=== PATIENT | female | born 1945 | race Caucasian/White ===

== ENCOUNTER → 2018-02-28 14:54 | Outpatient (CLI) | payer MEDICARE, OTHER, SELFPAY ==
--- NOTE | 2018-02-28 15:03 | XR_ITS ---
XR hip RT 2-3V w/pelvis HISTORY: ITS.REASON: RT HIP PAIN ORDERING PHYSICIAN: Wesley Arias MD PATIENT AGE: 72 years FINDINGS: There are mild osteoarthritic changes of the right hip. No fracture or dislocation. No lytic or blastic change. IMPRESSION: Mild osteoarthritis of the right hip
--- NOTE | 2018-02-28 15:05 | XR_ITS ---
XR DEXA axial skeleton HISTORY: ITS.REASON: POST MENOPAUSAL ORDERING PHYSICIAN: Wesley Arias MD PATIENT AGE: 72 years COMPARISON: FINDINGS: The BMD measured at the Right femoral neck is 0.805 g/cm squared with a T score of -1.7. This is considered Osteopenic according to the World Health Organization criteria. Fracture risk is Moderate. Treatment is advised. IMPRESSION: Osteopenia with moderate fracture risk. Recommend follow-up exam February 2020. Treatment recommended
--- NOTE | 2018-02-28 15:05 | MM_ITS ---
MM Dig screening mamm BI w/CAD CAD Screening INDICATION: Screening for breast cancer ORDERING PHYSICIAN: Wesley Arias MD PATIENT AGE: 72 years COMPARISON: 06/17/2016, 07/07/2016, 08/07/2009 TECHNIQUE: Standard CC and MLO images were obtained. R2 CAD reviewed. FINDINGS: Average fibroglandular tissue. Bilateral skin lesions noted with skin markers. No malignant appearing mass or malignant appearing microcalcification. No malignant appearing mass or malignant microcalcification. Benign-appearing calcifications IMPRESSION: No change with no evidence of malignancy BI-RADS Category: 2 Benign Finding(s) RECOMMENDED FOLLOW-UP: 1YR - 1 YEAR FOLLOW-UP (A letter has been sent to the patient regarding results of the study.)
== END ==
PROVIDERS: Family Provider Family Medicine; PCP Nurse Practitioner; Visit Provider Family Medicine
DX: Z12.31 Encounter for screening mammogram for malignant neoplasm of breast (principal); Z78.0 Asymptomatic menopausal state; Z00.00 Encounter for general adult medical examination without abnormal findings
CPT/HCPCS: 73502; 77067; 77080

== ENCOUNTER 2018-09-08 09:50 | Observation (INO) ==
--- NOTE | 2018-09-08 09:56 | Emergency Department Note ---
ED Disposition Clinical Impression: Multiple falls, Dizziness Disposition: Still a Patient Condition on Discharge: Good - Critical Care Critical Care Time: No Attestation: On 09/08/18, the high probability of a clinically significant, sudden or life threatening deterioration of the following system(s) required my full and direct attention, intervention and personal management. The time I documented below is in addition to time spent performing reported procedures but includes the following listed in this critical care notation. Medical Decision Making - Henri Inquiry Pt receiving controlled substance: No Vital Signs: 09/08/18 09:57 09/08/18 10:49 09/08/18 11:56 Temperature 98.5 F Temperature Source Oral Pulse Rate [Left Radial] 98 H 96 H 88 Respiratory Rate 18 17 Blood Pressure [Right Arm] 117/35 L 128/67 126/60 Blood Pressure Mean [Right Arm] 62 87 82 Blood Pressure Source [Right Arm] Automatic Cuff Automatic Cuff Automatic Cuff Blood Pressure Position [Right Arm] Sitting Supine Supine 02 Sat by Pulse Oximetry 98 94 L 94 L Oxygen Delivery Method Room Air Room Air Room Air - Lab Data Lab Results 09/08/18 11:39: WBC 14.1 H, RBC 4.11 L, Hgb 13.3, Hct 42.8, MCV 104.1 H, MCH 32.4 H, MCHC 31.2 L, RDW 16.0, Plt Count 224, MPV 9.5, Neut % (Auto) 73.6, Lymph % (Auto) 17.0, [place] % (Auto) 8.2, Eos % (Auto) 0.8, Baso % (Auto) 0.5, Neut # (Auto) 10.3 H, Lymph # (Auto) 2.4, [place] # (Auto) 1.2 H, Eos # (Auto) 0.1, Baso # (Auto) 0.1 09/08/18 11:39: Sodium 140, Potassium 3.7, Chloride 105, Carbon Dioxide 28, Anion Gap 10.7, BUN 12, Creatinine 0.96, Estimated Creat Clear 50, Estimated GFR 57 L, Est GFR ( Amer) 69, Glucose 106, Calcium 7.6 L, Total Bilirubin 1.1 H, AST 14 L, ALT 11 L, Alkaline Phosphatase 103, Troponin I < 0.02, Total Protein 6.2 L, Albumin 2.8 L, Globulin 3.4 H, Albumin/Globulin Ratio 0.8 L 09/08/18 11:50: Urine Color Yellow, Urine Appearance Clear, Urine pH 6.0, Ur Specific [place] >= 1.030, Urine Protein Trace, Urine Glucose (UA) Negative, Urine Ketones Trace, Urine Blood Negative, Urine Nitrate Negative, Urine Phil irubin Negative, Urine Urobilinogen 4.0, Ur Leukocyte Esterase Negative, Urine RBC Occasional, Urine WBC Occasional, Ur Squamous Epith Cells None, Urine Bacteria Trace Result diagrams: 09/08/18 11:39 09/08/18 11:39 Orders (Tests/Meds): ORDERS Category Date Time Status Urinalysis and Microscopic Stat Lab 09/08/18 11:50 Ordered - Radiology Data #1 Image(s): Chest, Hip Image Reviewed: Yes I have reviewed radiologist's interpretation Preliminary Findings: Normal/NAD - CT Data CT Scan: Head Time Received: 11:[address] Reviewed: Yes: I have viewed the radiologist's interpretation Findings Narrative: Head: IMPRESSION: Findings of moderate cortical atrophy and stable old ischemic infarcts as described above, no definite acute intracranial pathology noted Dictated By: Daryl Villagomez Signed By: <Electronically signed by Daryl Villagomez in OV> 09/08/18 1058 Hip: There is a somewhat elongated radiolucent lesion of the left iliac bone just lateral to the SI joint measuring 1.2 x 4.8 cm in size with fairly well-defined borders and 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 A lytic metastatic lesion cannot be entirely excluded and if there is persistent pain of follow-up nonemergent bone scan may be helpful for additional evaluation. The femoral head and neck appear intact. The lesser and greater trochanter appear grossly normal. There is minor spurring of the superior rim of the acetabulum. IMPRESSION: 1. No acute left hip fracture seen 2. Radiolucent lesion of the left iliac bone, see discussion above Dictated By: Daryl Villagomez Signed By: <Electronically signed by Daryl Villagomez in OV> 09/08/18 1122 - ECG Data Tracing #1 EKG interpreted by Beck Barton MD: Rhythm: Atrial fibrillation Rate: 86 [place]: normal Ectopy: none Conduction: normal ST Segment Changes: none T Wave Changes: Nonspecific Q Waves: none No evidence of acute ischemia or injury Low voltage QRS - Physician Consults Physician Consulted: Breana shukla Hugo Time: 13:36 Reason -: Admission Comment/Response: Agrees to admit the patient to the hospital. We discussed the patient's clinical information, including history, exam, laboratory and radiology results and ED course. Per hospital procedure, I will write [facility] bridge inpatient orders on the patient. Specific orders requested by the admit [facility] physician: PT/OT consult Medical Decision Narrative: Discussed results. Patient states that she has a chronically elevated white blood cell count. General Adult HPI - General Chief complaint: Fall Stated complaint: fall Time Seen by Provider: 09/08/18 09:56 - History of Present Illness HPI narrative: Since Tuesday has been weak and dizzy and has fallen 5 times. Has pain in her left hip from the falls. She has been using a walker, but still falls. Daughter walks behind her has been able to abort some falls. She has some redness around her eyes and mouth, probable allergic reaction is started a few days ago and has been on Benadryl, but has not had any since yesterday. Denies cough, cold symptoms. Denies fever. Denies vomiting or diarrhea. Denies chest pain or shortness of breath. Daughter says that she has a previous stroke, residual of dysarthria and left-sided weakness. Daughter saw a little bit of drooping of her face for a few minutes over the past couple of days, but not persistent. No new deficits noted for her generalized weakness and dizziness. No other new medications. - Related Data Home Medications Medication Instructions Recorded Confirmed Atenolol [Atenolol 100mg Tab] 100 mg PO DAILY 09/08/18 09/08/18 Levothyroxine Sodium 25 mcg PO DAILY 09/08/18 09/08/18 [Levothyroxine 25mcg (0.025mg) Tab] PARoxetine HCl [Paxil 10mg Tablet] 10 mg PO DAILY 09/08/18 09/08/18 Rivaroxaban [Xarelto 20mg Tablet] 20 mg PO DAILY 09/08/18 09/08/18 dilTIAZem HCl [Cardizem 30mg 30 mg PO QID 09/08/18 09/08/18 tab] levETIRAcetam [Levetiracetam] 250 mg PO BID 09/08/18 09/08/18 Allergies Allergy/AdvReac Type Severity Reaction Status Date / Time ofloxacin [OFLOXACIN] Allergy Unknown Verified 09/08/18 10:08 [facility] History I have reviewed the patient's past medical history: Yes ROS Obtained: Yes All systems reviewed & no additional complaints - Constitutional Constitutional: Denies fever(s), Reports weakness - Cardiovascular Cardiovascular: Denies chest pain - Respiratory Respiratory: No dyspnea - Gastrointestinal Gastrointestingal: Denies: abdominal pain, diarrhea, vomiting - Musculoskeletal Musculoskeletal: Reports joint pain (Left hip) - Neurologic Neurologic: Reports as per HPI, Denies headache(s) Physical Exam - General General appearance: alert, in no apparent distress Comment: Dysarthria - Head Head exam: atraumatic, normocephalic, normal inspection - Eye Eye exam: Present: PERRL, EOMI, other (Erythema of the eyelids and periorbital tissues, consistent with allergic response). Absent: nystagmus - ENT ENT exam: Present: mucous membranes moist, TM's normal bilaterally - Neck Neck exam: Present: normal inspection, full ROM, trachea midline. Absent: meningismus, lymphadenopathy - Chest Chest inspection: Present: normal inspection, symmetric chest wall rise. Absent: tenderness - Respiratory Respiratory exam: Present: normal lung sounds bilaterally. Absent: respiratory distress - Cardiovascular Cardiovascular exam: Present: regular rate, irregular rhythm. Absent: JVD - Abdominal Exam Abdominal exam: Present: soft, normal bowel sounds. Absent: distention, tenderness, guarding - Extremities Exam Extremities exam: Present: normal capillary refill - Expanded Lower Extremity Exam Left Comment: Tender left hip without deformity. Pain with flexion and internal/external rotation. Neurovascular intact with good pulses, capillary refill, sensation. - Neurological Exam Neurological exam: Present: alert, oriented X3, other (Dysarthria, mild left hemiparesis) - Psychiatric Psychiatric exam: Present: normal affect, normal mood - Skin Skin exam: Present: warm, dry, intact, normal color
[2018-09-08 11:48] LABS: Basophils # 0.1 K/mm3 (0-0.2); Basophils % 0.5 % (0.1-2.0); Eosinophils # 0.1 K/mm3 (0.0-0.4); Eosinophils % 0.8 % (0.1-12.0); Hematocrit 42.8 % (37.0-47.0); Hemoglobin 13.3 g/dL (12.2-16.2); Lymphocytes # 2.4 K/mm3 (0.7-4.5); Mean Corpuscular HGB Conc 31.2 g/dL (31.8-35.4); Mean Corpuscular Hemoglobin 32.4 pg (27.0-31.2); Mean Corpuscular Volume 104.1 fl (81-99); Mean Platelet Volume 9.5 fl (7.4-10.4); Monocytes # 1.2 K/mm3 (0.1-1.0); Monocytes % 8.2 % (1.7-9.3); Neutrophils # 10.3 K/mm3 (1.8-7.8); Neutrophils % 73.6 % (37.0-80.0); Platelet Count 224 K/mm3 (142-424); Red Blood Count 4.11 M/mm3 (4.20-5.40); White Blood Count 14.1 K/mm3 (4.8-10.8)
[2018-09-08 12:02] LABS: Alanine Aminotransferase 11 U/L (12-78); Albumin Level 2.8 gm/dL (3.4-5.0); Albumin/Globulin Ratio 0.8 (1.1-1.8); Alkaline Phosphatase 103 U/L (46-116); Anion Gap 10.7 mEq/L (5-15); Aspartate Amino Transferase 14 U/L (15-37); Bilirubin,Total 1.1 mg/dL (0.2-1.0); Blood Urea Nitrogen 12 mg/dL (7-18); Calcium 7.6 mg/dL (8.5-10.1); Carbon Dioxide 28 mmol/L (21.0-32.0); Chloride 105 mmol/L (98-107); Globulin 3.4 gm/dl (1.3-3.2); Glucose 106 mg/dL (74-106); Potassium 3.7 mmoL/L (3.5-5.1); Sodium 140 mmol/L (136-145); Total Protein,Serum 6.2 gm/dL (6.4-8.2)
[2018-09-08 12:57] LABS: Microscopic, Urine URINE MICROSCOPIC (MICROSCOPIC)
[2018-09-08 13:05] LABS: Appearance,Urine CLEAR (Clear); Blood, Urine Negative (Negative); Color,Urine YELLOW (Yellow); Glucose,Urine (UA) Negative (Negative); Ketones,Urine TRACE (Negative); Leukocyte Esterase,Urine Negative (Negative); Protein,Urine TRACE (Negative); Specific Gravity, Urine >= 1.030 (1.005-1.030)
[2018-09-08 13:10] LABS: Bilirubin,Urine Negative (Negative)
[2018-09-08 13:16] LABS: Bacteria,Urine Trace /lpf; RBC,Urine Occasional #/hpf (0-3); WBC,Urine Occasional #/hpf (0-3)
[2018-09-08 14:37] LABS: Free Thyroxine Index 2.8 ug/dL (5.93-13.13); T4 (Thyroxine) 7.8 ug/dl (4.7-13.3); Thyroid Stimulating Hormone 1.63 uIU/ml (0.358-3.740)
--- NOTE | 2018-09-09 10:32 | History & Physical Report ---
*Admission Date: 09/08/18 *Chief complaint: Multiple falls *History of present illness: Ms. Waggoner is a 73-year-old white female with a history of previous CVA, chronic atrial fibrillation, hypothyroidism and depression. She was brought to the emergency room yesterday after having had several falls at home. Her daughter states that the first fall occurred on 09/06/2018 and she landed on her right hip. After that she continued to complain of pain in the hip was favoring her leg and her daughter thinks that is the reason she continued to have falls. She had been started on antibiotic earlier in the week for apparent sinus infection but her daughter dates she had no complaints of dizziness. There were no syncopal spells. No complaints of cardiac palpitations or chest pain. She complained of some swelling and itching of her eyes with clear watery drainage. No headaches or visual changes. No complaints of sinus drainage. She was evaluated in the emergency room with multiple x-rays and head CT which showed no acute fractures. There was questionably lesion in the iliac bone that was most consistent with a bone cyst. Because of her history of multiple falls she has been admitted for further evaluation. [facility] History Medical History: Reports:: Atrial Fibrillation (Chronic), Hypertension Denies:: Diabetes Mellitus Type 1, Diabetes Mellitus Type 2 Other Medical History: Reports: Arthritis, Hypothyroidism Other Surgeries: Yes: Cholecystectomy, Hysterectomy-Total Fractures: Yes (ORIF left ankle fracture) - *Social History Smoking Status: Never smoker Alcohol Intake: never Occupational Status: disabled Household Members: spouse, children - Psychiatric History Expresses thoughts of harming self/others: None Suicide Plan Description: No Plan *Family Hx:: Coronary Artery Disease, Diabetes, Hypertension Comment: Alexandro's dementia Review of Systems - Constitutional Denies anorexia, Denies fever(s), Denies weakness - Eyes Reports discharge (clear, watery) Comments: itchy eyes - ENT Reports change in voice (hoarse since her stroke), Denies abnormal hearing, Denies difficulty swallowing, Denies sinus pain, Denies sinus pressure, Denies sore throat - *Cardiovascular Denies chest pain, Denies shortness of breath, Denies rapid, pounding, or irregular heartbeat - *Respiratory Denies chest congestion, Denies cough - *Gastrointestinal Denies abdominal pain, Denies change in bowel habits, Denies nausea, Denies vomiting - *Genitourinary Denies abnormal vaginal bleeding, Denies painful urination - *Musculoskeletal Reports abnormal walking, Reports muscle weakness (related to old stroke) - Integumentary/Breasts Denies change in skin color - *Neurologic Reports abnormal walking, Reports frequent falls, Reports weakness, Denies abnormal hearing, Denies headache(s), Denies memory loss - Psychiatric Reports depression, Denies anxiety - Endocrine Denies heat intolerance - Hematologic/Lymphatic Denies easy bruising - Allergic/Immunologic Reports itchy eyes Meds Home Medications Medication Instructions Recorded Confirmed Type Atenolol [Atenolol 100mg Tab] 50 mg PO DAILY 09/08/18 09/09/18 History Levothyroxine Sodium 25 mcg PO DAILY 09/08/18 09/08/18 History [Levothyroxine 25mcg (0.025mg) Tab] PARoxetine HCl [Paxil 10mg Tablet] 10 mg PO DAILY 09/08/18 09/08/18 History Rivaroxaban [Xarelto 20mg Tablet] 20 mg PO DAILY 09/08/18 09/08/18 History dilTIAZem HCl [Cardizem 30mg 30 mg PO Q8H 09/08/18 09/09/18 History tab] levETIRAcetam [Levetiracetam] 250 mg PO BID 09/08/18 09/08/18 History Atenolol [Atenolol 100mg Tab] 50 mg PO DAILY 09/09/18 09/09/18 History Allergies Allergy/AdvReac Type Severity Reaction Status Date / Time ofloxacin [OFLOXACIN] Allergy Unknown Verified 09/08/18 10:08 Exam Vital signs and Labs for Last 24 Hours: Temp Pulse Resp BP Pulse Ox 98.0 F 91 H 16 130/79 97 09/09/18 08:00 09/09/18 08:00 09/09/18 08:00 09/09/18 08:00 09/09/18 08:00 Laboratory Results - last 24 hr 09/08/18 11:39: WBC 14.1 H, RBC 4.11 L, Hgb 13.3, Hct 42.8, MCV 104.1 H, MCH 32.4 H, MCHC 31.2 L, RDW 16.0, Plt Count 224, MPV 9.5, Neut % (Auto) 73.6, Lymph % (Auto) 17.0, [place] % (Auto) 8.2, Eos % (Auto) 0.8, Baso % (Auto) 0.5, Neut # (Auto) 10.3 H, Lymph # (Auto) 2.4, [place] # (Auto) 1.2 H, Eos # (Auto) 0.1, Baso # (Auto) 0.1 09/08/18 11:39: Sodium 140, Potassium 3.7, Chloride 105, Carbon Dioxide 28, Anion Gap 10.7, BUN 12, Creatinine 0.96, Estimated Creat Clear 50, Estimated GFR 57 L, Est GFR ( Amer) 69, Glucose 106, Calcium 7.6 L, Total Bilirubin 1.1 H, AST 14 L, ALT 11 L, Alkaline Phosphatase 103, Troponin I < 0.02, Total Protein 6.2 L, Albumin 2.8 L, Globulin 3.4 H, Albumin/Globulin Ratio 0.8 L 09/08/18 11:39: TSH 1.63, Free T4 Index 2.8 L, Thyroxine (T4) 7.8, T3 Uptake 36 09/08/18 11:50: Urine Color Yellow, Urine Appearance Clear, Urine pH 6.0, Ur Specific [place] >= 1.030, Urine Protein Trace, Urine Glucose (UA) Negative, Urine Ketones Trace, Urine Blood Negative, Urine Nitrate Negative, Urine Bilirubin Negative, Urine Urobilinogen 4.0, Ur Leukocyte Esterase Negative, Urine RBC Occasional, Urine WBC Occasional, Ur Squamous Epith Cells None, Urine Bacteria Trace I & O for Last 24 hours: Intake & Output 09/06/18 09/07/18 09/08/18 09/09/18 11:59 11:59 11:59 11:59 Intake Total 610 / 610 Balance 610 / 610 Weight 144 lb 139 lb 5 oz Narrative: She is lying comfortably in bed. She is awake alert and oriented to person place and time. She appears in no acute distress. HEENT shows cranium to be atraumatic and normocephalic. The skin on her upper and lower eyelids is red and dry bilaterally. Conjunctivae are mildly injected. No purulent drainage. Nares are patent. TMs unremarkable. No erythema of the throat. Voice is hoarse. Neck is supple with no masses, thyromegaly, or bruits. Heart is irregularly irregular. Lungs are clear to auscultation. Abdomen is soft and nondistended with no unusual masses or tenderness. Extremeties show no edema. There is some tenderness over the right lateral hip. No bruising noted. Range of motion of the hip is normal. Gait is not tested. Assessment and Plan (1) Multiple falls Current visit: Yes Status: Acute Category: Medical Code(s): R29.6 - Repeated falls (2) Right hip pain Current visit: Yes Status: Acute Category: Medical Code(s): M25.551 - Pain in right hip (3) History of CVA (cerebrovascular accident) Current visit: Yes Status: Acute Category: Medical Code(s): Z86.73 - Personal history of transient ischemic attack (TIA), and cerebral infarction without residual deficits (4) Hypothyroidism Current visit: Yes Status: Acute Category: Medical Code(s): E03.9 - Hypothyroidism, unspecified (5) Depression Current visit: Yes Status: Acute Category: Medical Code(s): F32.9 - Major depressive disorder, single episode, unspecified (6) Allergic conjunctivitis Current visit: Yes Status: Acute Category: Medical Code(s): H10.10 - Acute atopic conjunctivitis, unspecified eye (7) Acute sinusitis Current visit: Yes Status: Acute Category: Medical Code(s): J01.90 - Acute sinusitis, unspecified (8) DNR (do not resuscitate) Current visit: Yes Status: Acute Category: Medical Code(s): Z66 - Do not resuscitate - Assessment and plan all Dx Assessment and Plan for all problems:: She has been admitted for further evaluation. We will have physical therapy see her to assess her gait and balance. She will be continued on Benadryl for her allergic conjunctivitis symptoms. She will also be continued on oral antibiotics that were started for sinus infection. I discussed disposition with her daughter. If she qualifies for skilled care, this would be their preference but they are also amenable to home health or outpatient physical therapy.
--- NOTE | 2018-09-09 11:43 | Pharmacy Consult Notes ---
[facility] Pharmacy VTE Monitoring - Patient Demographics Admission date: 09/08/18 Report Date: 09/09/18 Time: 11:42 Allergies/Adverse Reactions: Patient Allergies ofloxacin [OFLOXACIN] Allergy (Unknown, Verified 09/08/18 10:08) Height: 1.7 m Weight: 63.191 kg Patient Problems: Current Active Problems Multiple falls (Acute) Dizziness (Acute) Right hip pain (Acute) History of CVA (cerebrovascular accident) (Acute) Hypothyroidism (Acute) Depression (Acute) Allergic conjunctivitis (Acute) Acute sinusitis (Acute) DNR (do not resuscitate) (Acute) - VTE Risk Labs: VTE Related Lab Results Hgb 13.3 g/dL (12.2-16.2) 09/08/18 11:39 Hct 42.8 % (37.0-47.0) 09/08/18 11:39 Plt Count 224 K/mm3 (142-424) 09/08/18 11:39 BUN 12 mg/dL (7-18) 09/08/18 11:39 Creatinine 0.96 mg/dL (0.55-1.02) 09/08/18 11:39 Estimated Creat Clear 50 mL/min (50-200) 09/08/18 11:39 - Prophylaxis VTE Prophylaxis Ordered?: Yes Types of VTE Prophylaxis: Pharmacological (XARELTO) Pharmacologic Type: Other
[2018-09-10 06:46] LABS: Basophils # 0.1 K/mm3 (0-0.2); Basophils % 0.6 % (0.1-2.0); Eosinophils # 0.7 K/mm3 (0.0-0.4); Eosinophils % 5.8 % (0.1-12.0); Hematocrit 41.9 % (37.0-47.0); Hemoglobin 13.4 g/dL (12.2-16.2); Lymphocytes # 3.9 K/mm3 (0.7-4.5); Lymphocytes % 31.1 % (10-50); Mean Corpuscular HGB Conc 31.9 g/dL (31.8-35.4); Mean Corpuscular Hemoglobin 32.6 pg (27.0-31.2); Mean Corpuscular Volume 102.2 fl (81-99); Mean Platelet Volume 11.1 fl (7.4-10.4); Monocytes # 1.2 K/mm3 (0.1-1.0); Monocytes % 9.2 % (1.7-9.3); Neutrophils # 6.7 K/mm3 (1.8-7.8); Neutrophils % 53.3 % (37.0-80.0); Platelet Count 253 K/mm3 (142-424); Red Cell Distribution Width 15.8 % (11.5-17.5); White Blood Count 12.5 K/mm3 (4.8-10.8)
--- NOTE | 2018-09-10 08:38 | Progress Note ---
Internal Medicine - PN: Subj Interval history: She c/o pain in left hip. Eyes still itchy but better. C/o lips dry and cracking. Exam Vital signs and Labs for Last 24 Hours: Temp Pulse Resp BP Pulse Ox 96.9 F L 79 18 113/59 L 98 09/10/18 04:00 09/10/18 04:00 09/10/18 04:00 09/10/18 04:00 09/10/18 04:00 Laboratory Results - last 24 hr 09/10/18 06:10: WBC 12.5 H, RBC 4.10 L, Hgb 13.4, Hct 41.9, MCV 102.2 H, MCH 32.6 H, MCHC 31.9, RDW 15.8, Plt Count 253, MPV 11.1 H, Neut % (Auto) 53.3, Lymph % (Auto) 31.1, [place] % (Auto) 9.2, Eos % (Auto) 5.8, Baso % (Auto) 0.6, Neut # (Auto) 6.7, Lymph # (Auto) 3.9, [place] # (Auto) 1.2 H, Eos # (Auto) 0.7 H, Baso # (Auto) 0.1 I & O for Last 24 hours: Intake & Output 09/07/18 09/08/18 09/09/18 09/10/18 11:59 11:59 11:59 11:59 Intake Total 610 / 610 970 / 970 Balance 610 / 610 970 / 970 Weight 144 lb 139 lb 5 oz - Constitutional Comments: Lying in bed. Mildly uncomfortable - *Routine Respiratory Exam Present: CTA bilaterally - *Routine Cardiovascular Exam Present: irregular rhythm - *Routine Extremities Exam Absent: edema Assessment and Plan (1) Multiple falls Current visit: Yes Status: Acute Category: Medical Code(s): R29.6 - Repeated falls (2) Left hip pain Current visit: Yes Status: Acute Category: Medical Code(s): M25.552 - Pain in left hip (3) History of CVA (cerebrovascular accident) Current visit: Yes Status: Acute Category: Medical Code(s): Z86.73 - Personal history of transient ischemic attack (TIA), and cerebral infarction without residual deficits (4) Hypothyroidism Current visit: Yes Status: Acute Category: Medical Code(s): E03.9 - Hy pothyroidism, unspecified (5) Depression Current visit: Yes Status: Acute Category: Medical Code(s): F32.9 - Major depressive disorder, single episode, unspecified (6) Allergic conjunctivitis Current visit: Yes Status: Acute Category: Medical Code(s): H10.10 - Acute atopic conjunctivitis, unspecified eye (7) Acute sinusitis Current visit: Yes Status: Acute Category: Medical Code(s): J01.90 - Acute sinusitis, unspecified (8) DNR (do not resuscitate) Current visit: Yes Status: Acute Category: Medical Code(s): Z66 - Do not resuscitate - Assessment and plan all Dx Assessment and Plan for all problems:: PT bob noted. They feel she would benefit from SNF referral however finances is likely to be an issue as she will not have a qualifying stay. Care management has been in conversation with family.
[2018-09-11 07:16] LABS: Basophils # 0.1 K/mm3 (0-0.2); Basophils % 0.4 % (0.1-2.0); Eosinophils # 0.3 K/mm3 (0.0-0.4); Eosinophils % 2.5 % (0.1-12.0); Hematocrit 38.3 % (37.0-47.0); Hemoglobin 12.2 g/dL (12.2-16.2); Lymphocytes # 2.7 K/mm3 (0.7-4.5); Lymphocytes % 21.7 % (10-50); Mean Corpuscular HGB Conc 31.8 g/dL (31.8-35.4); Mean Corpuscular Hemoglobin 32.6 pg (27.0-31.2); Mean Corpuscular Volume 102.6 fl (81-99); Mean Platelet Volume 9.3 fl (7.4-10.4); Monocytes # 0.7 K/mm3 (0.1-1.0); Monocytes % 5.3 % (1.7-9.3); Neutrophils # 8.8 K/mm3 (1.8-7.8); Platelet Count 279 K/mm3 (142-424); Red Blood Count 3.73 M/mm3 (4.20-5.40); Red Cell Distribution Width 15.9 % (11.5-17.5); White Blood Count 12.6 K/mm3 (4.8-10.8)
--- NOTE | 2018-09-11 08:47 | Progress Note ---
Internal Medicine - PN: Subj *Date: 09/11/18 *Time: 08:44 Interval history: Patient with no new complaints today, wants to go home. No family present in room this morning. Exam Vital signs and Labs for Last 24 Hours: Temp Pulse Resp BP Pulse Ox 97.7 F 95 H 16 141/79 H 98 09/11/18 07:43 09/11/18 07:43 09/11/18 08:00 09/11/18 07:43 09/11/18 08:00 Laboratory Results - last 24 hr 09/11/18 06:10: WBC 12.6 H, RBC 3.73 L, Hgb 12.2, Hct 38.3, MCV 102.6 H, MCH 32.6 H, MCHC 31.8, RDW 15.9, Plt Count 279, MPV 9.3, Neut % (Auto) 70.0, Lymph % (Auto) 21.7, [place] % (Auto) 5.3, Eos % (Auto) 2.5, Baso % (Auto) 0.4, Neut # (Auto) 8.8 H, Lymph # (Auto) 2.7, [place] # (Auto) 0.7, Eos # (Auto) 0.3, Baso # (Auto) 0.1 I & O for Last 24 hours: Intake & Output 09/08/18 09/09/18 09/10/18 09/11/18 11:59 11:59 11:59 11:59 Intake Total 610 / 610 970 / 970 370 / 370 Balance 610 / 610 970 / 970 370 / 370 Weight 144 lb 139 lb 5 oz - Constitutional no acute distress (hoarse voice but conversant) - *Routine HEENT Exam Eye: Present: EOMI, PERRL. Absent: scleral injection Assessment and Plan (1) Multiple falls Current visit: Yes Status: Acute Category: Medical Code(s): R29.6 - Repeated falls (2) Left hip pain Current visit: Yes Status: Acute Category: Medical Code(s): M25.552 - Pain in left hip (3) History of CVA (cerebrovascular accident) Current visit: Yes Status: Acute Category: Medical Code(s): Z86.73 - Personal history of transient ischemic attack (TIA), and cerebral infarction without residual deficits (4) Hypothyroidism Current visit: Yes Status: Acute Category: Medical Code(s): E03.9 - Hypothyroidism, unspecified (5) Depression Current visit: Yes Status: Acute Category: Medical Code(s): F32.9 - Major depressive disorder, single episode, unspecified (6) Allergic conjunctivitis Current visit: Yes Status: Acute Category: Medical Code(s): H10.10 - Acute atopic conjunctivitis, unspecified eye (7) Acute sinusitis Current visit: Yes Status: Acute Category: Medical Code(s): J01.90 - Acute sinusitis, unspecified (8) DNR (do not resuscitate) Current visit: Yes Status: Acute Category: Medical Code(s): Z66 - Do not resuscitate - Assessment and plan all Dx Assessment and Plan for all problems:: Patient appears ready for discharge but her post hospital care plan has not been worked out yet. Discussed with care management.
[2018-09-11 17:47] LABS: Microscopic, Urine URINE MICROSCOPIC (MICROSCOPIC)
[2018-09-11 17:48] LABS: Appearance,Urine CLEAR (Clear); Bilirubin,Urine Negative (Negative); Blood, Urine Negative (Negative); Color,Urine YELLOW (Yellow); Glucose,Urine (UA) Negative (Negative); Ketones,Urine TRACE (Negative); Leukocyte Esterase,Urine Negative (Negative); PH,Urine 6.5 (5.0-8.5); Protein,Urine Negative (Negative)
[2018-09-11 18:22] LABS: Bacteria,Urine Trace /lpf; WBC,Urine Occasional #/hpf (0-3)
--- NOTE | 2018-09-11 22:40 | Discharge Summary ---
General - General Admission date:: 09/08/18 HPI HPI: Ms. Waggoner is a 73-year-old white female with a history of previous CVA, chronic atrial fibrillation, hypothyroidism and depression. She was brought to the emergency room yesterday after having had several falls at home. Her daughter states that the first fall occurred on 09/06/2018 and she landed on her left hip. After that she continued to complain of pain in the hip was favoring her leg and her daughter thinks that is the reason she continued to have falls. She had been started on an antibiotic earlier in the week for apparent sinus infection but her daughter states she had no complaints of dizziness. There w ere no syncopal spells. No complaints of cardiac palpitations or chest pain. She complained of some swelling and itching of her eyes with clear watery drainage. No headaches or visual changes. No complaints of sinus drainage. She was evaluated in the emergency room with multiple x-rays and head CT which showed no acute fractures. 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 Because of her history of multiple falls she has been admitted for further evaluation. Hospital Course Hospital Course: Physical therapy saw her to assess her gait and balance. She was continued on Benadryl for her allergic conjunctivitis symptoms. She was also continued on oral antibiotics that were started for sinus infection. PT felt she would benefit from SNF referral, however finances were an issue as she did not have a qualifying stay. Care management was in conversation with the family. Dr. Guardado spoke with the patient's daughter. The patient wanted to be discharged. A urine was collected for UA prior to discharge and she was able to be discharged with home health and a f/u with Dr. Arias in 1 week. Objective Vital signs: Temp Pulse Resp BP Pulse Ox 97.5 F L 89 16 122/77 95 09/11/18 15:57 09/11/18 15:57 09/11/18 15:57 09/11/18 15:57 09/11/18 15:57 Narrative: - Constitutional Comments: Lying in bed. Mildly uncomfortable - *Routine Respiratory Exam Present: CTA bilaterally - *Routine Cardiovascular Exam Present: irregular rhythm - *Routine Extremities Exam Absent: edema Results Labs on day of discharge: Labs from last 24 hours 09/11/18 09/11/18 17:39 06:10 WBC 12.6 H RBC 3.73 L Hgb 12.2 Hct 38.3 MCV 102.6 H MCH 32.6 H MCHC 31.8 RDW 15.9 Plt Count 279 MPV 9.3 Neut % (Auto) 70.0 Lymph % (Auto) 21.7 Young % (Auto) 5.3 Eos % (Auto) 2.5 Baso % (Auto) 0.4 Neut # (Auto) 8.8 H Lymph # (Auto) 2.7 Young # (Auto) 0.7 Eos # (Auto) 0.3 Baso # (Auto) 0.1 Urine Color Yellow Urine Appearance Clear Urine pH 6.5 Ur Specific [place] 1.010 Urine Protein Negative Urine Glucose (UA) Negative Urine Ketones Trace Urine Blood Negative Urine Nitrate Negative Urine Bilirubin Negative Urine Urobilinogen 1.0 Ur Leukocyte Esterase Negative Urine WBC Occasional Ur Squamous Epith Cells 5-10 Urine Bacteria Trace DS: Diagnosis - Discharge Diagnosis (1) Multiple falls Status: Acute (2) Left hip pain Status: Acute (3) History of CVA (cerebrovascular accident) Status: Acute (4) Hypothyroidism Status: Acute (5) Depression Status: Acute (6) Allergic conjunctivitis Status: Acute (7) Acute sinusitis Status: Acute (8) DNR (do not resuscitate) Status: Acute Discharge Plan - Patient Discharge Instructions ACTIVITY: Continue current activity DIET: continue same diet Patient Instructions: DI for Acute Pain -- Adult, How to Prevent Falls, Dizziness, Nonvertigo - Follow up Plan Follow up with: Wesley Arias MD [Primary Care Provider] - 1 week Disposition: Home Health Service Home Medications: Home Medications Medication Instructions Recorded Confirmed Type Levothyroxine Sodium 25 mcg PO DAILY 09/08/18 09/08/18 History [Levothyroxine 25mcg (0.025mg) Tab] PARoxetine HCl [Paxil 10mg Tablet] 10 mg PO DAILY 09/08/18 09/08/18 History Rivaroxaban [Xarelto 20mg Tablet] 20 mg PO HS 09/08/18 09/09/18 History dilTIAZem HCl [Cardizem 30mg 30 mg PO Q8H 09/08/18 09/09/18 History tab] levETIRAcetam [Levetiracetam] 250 mg PO BID 09/08/18 09/08/18 History Atenolol [Atenolol 100mg Tab] 50 mg PO DAILY 09/09/18 09/09/18 History Pantoprazole Sodium [Protonix 40mg 40 mg PO DAILY 09/09/18 09/09/18 History tablet] Prescriptions/Medication Reconciliation: Continue Levothyroxine Sodium [Levothyroxine 25mcg (0.025mg) Tab] 25 mcg PO DAILY levETIRAcetam [Levetiracetam] 250 mg PO BID dilTIAZem HCl [Cardizem 30mg tab] 30 mg PO Q8H Atenolol [Atenolol 100mg Tab] 50 mg PO DAILY Pantoprazole Sodium [Protonix 40mg tablet] 40 mg PO DAILY Rivaroxaban [Xarelto 20mg Tablet] 20 mg PO HS PARoxetine HCl [Paxil 10mg Tablet] 10 mg PO DAILY
== END 2018-09-11 17:57 | disposition home health service (06) ==
LOC: ER 09:50 → 2ND 09:50
PROVIDERS: ADMIT Emergency Medicine; ATTEND Family Medicine

== ENCOUNTER → 2018-09-26 12:52 | Outpatient (CLI) | payer MEDICARE, OTHER, SELFPAY ==
[2018-09-26 14:51] LABS: Anion Gap 11.2 mEq/L (5-15); Blood Urea Nitrogen 10 mg/dL (7-18); Calcium 8.1 mg/dL (8.5-10.1); Carbon Dioxide 28 mmol/L (21.0-32.0); Chloride 106 mmol/L (98-107); Creatinine,Serum 0.87 mg/dL (0.55-1.02); Estimated Glomerular Filt Rate 63 ml/min (>60); GFR (African American) 77 ML/MIN (>60); Glucose 105 mg/dL (74-106); Sodium 141 mmol/L (136-145)
[2018-09-26 14:54] LABS: Potassium 4.2 mmoL/L (3.5-5.1)
== END ==
PROVIDERS: Visit Provider Family Medicine
DX: Z86.73 Personal history of transient ischemic attack (TIA), and cerebral infarction without residual deficits (principal)
CPT/HCPCS: 36415; 80048

== ENCOUNTER → 2019-07-11 16:07 | Outpatient (CLI) | payer MEDICARE, OTHER, SELFPAY ==
--- NOTE | 2019-07-11 16:16 | XR_ITS ---
PROCEDURE: XR CHEST 2V CLINICAL HISTORY: SOB Shortness of air COMPARISON: CXR CHEST(2 VIEWS-NOT PORTABLE) from 08/09/2016 CXR2 CHEST-AP VIEW ONLY from 11/12/2016 CXR1 CHEST-PORTABLE from 04/29/2017 CXR2 XR chest AP from 09/08/2018 FINDINGS: There has been interval development of a medium-sized left pleural effusion. There is obscuration of the left lung base. Cannot exclude superimposed pneumonia in the left lower lobe. There is mild cardiomegaly. The right lung is clear. No acute bony findings. IMPRESSION: Moderate-sized left pleural effusion Dictated by: Drake Alfaro MD 07/11/2019 16:53 Electronically signed by Draek Alfaro MD in [place] 07/11/2019 16:53
[2019-07-11 18:16] LABS: Alanine Aminotransferase 10 U/L (12-78); Albumin Level 2.8 gm/dL (3.4-5.0); Albumin/Globulin Ratio 0.9 (1.1-1.8); Alkaline Phosphatase 118 U/L (46-116); Anion Gap 9.8 mEq/L (5-15); Aspartate Amino Transferase 23 U/L (15-37); Bilirubin,Total 0.8 mg/dL (0.2-1.0); Blood Urea Nitrogen 11 mg/dL (7-18); Calcium 8.3 mg/dL (8.5-10.1); Carbon Dioxide 28 mmol/L (21.0-32.0); Chloride 107 mmol/L (98-107); Creatinine,Serum 0.84 mg/dL (0.55-1.02); Estimated Glomerular Filt Rate 66 ml/min (>60); GFR (African American) 80 ML/MIN (>60); Globulin 3.2 gm/dl (1.3-3.2); Glucose 89 mg/dL (74-106); Potassium 3.8 mmoL/L (3.5-5.1); Sodium 141 mmol/L (136-145)
== END ==
PROVIDERS: PCP Family Medicine; Visit Provider Nurse Practitioner
DX: R06.02 Shortness of breath (principal); R60.0 Localized edema
CPT/HCPCS: 36415; 71046; 80053; 83880